=== PATIENT | male | born 2000 | race Caucasian/White ===

== ENCOUNTER 2019-05-23 20:36 | Emergency (ER) | payer OTHER ==
[2019-05-23 20:44] VITALS: RESP 16
[2019-05-23] MEDS ORDERED: SODIUM CHLORIDE 0.9% 1,000 ML IV ONE (21:08)
[2019-05-23] MEDS ORDERED: KETOROLAC 30 MG/ML 1 ML VIAL IVP STA (21:08)
[2019-05-23] MEDS ORDERED: ACETAMINOPHEN TAB 500 MG TAB PO STA (21:08)
--- NOTE | 2019-05-23 21:12 | ED ---
General Adult HPI - General Chief complaint: Back Pain/Injury Stated complaint: Back/Abd Pain Time Seen by Provider: 05/23/19 21:01 Source: patient, RN notes reviewed, old records reviewed Mode of arrival: ambulatory Limitations: no limitations - History of Present Illness Initial comments: 19-year-old male with no significant past medical history presents for evaluation of fever, cough, and bilateral flank pain. Denies dysuria. No previous history of kidney issues or urinary tract infection. his concern for UTI. Patient is circumcised. He's had some lower abdominal pain as well as bilateral flank pain. Denies injury. Denies IV drug use. Denies upper abdominal pain. He reports some mild cough and mild sore throat but no significant URI symptoms. - Related Data Previous Rx's Medication Instructions Recorded Azithromycin [Zithromax Z-pack] 0 mg PO DIRECTED #6 tab 05/23/19 Allergies Allergy/AdvReac Type Severity Reaction Status Date / Time No Known Allergies Allergy Verified 05/23/19 20:41 Review of Systems ROS Statement: Those systems with pertinent positive or pertinent negative responses have been documented in the HPI. ROS Other: All systems not noted in ROS Statement are negative. Past Medical History Past Medical History: No Reported History History of Any Multi-Drug Resistant Organisms: None Reported Past Surgical History: No Surgical Hx Reported Past Psychological History: No Psychological Hx Reported Smoking Status: Never smoker Past Alcohol Use History: None Reported Past Drug Use History: None Reported General Exam Limitations: no limitations General appearance: alert, in no apparent distress Head exam: Present: atraumatic, normocephalic Eye exam: Present: normal appearance, PERRL ENT exam: Present: normal exam, mucous membranes moist, other (no tonsillar swelling or exudate) Neck exam: Present: normal inspection, full ROM. Absent: tenderness, meningismus Respiratory exam: Present: normal lung sounds bilaterally. Absent: respiratory distress, wheezes, rales, rhonchi Cardiovascular Exam: Present: regular rate, normal rhythm GI/Abdominal exam: Present: soft. Absent: distended, tenderness, guarding Extremities exam: Present: normal inspection, normal capillary refill. Absent: pedal edema Back exam: Present: CVA tenderness (R), CVA tenderness (L). Absent: vertebral tenderness Neurological exam: Present: alert, oriented X3, CN II-XII intact. Absent: motor sensory deficit Psychiatric exam: Present: normal affect, normal mood Skin exam: Present: warm, dry, intact. Absent: cyanosis, diaphoretic Course Vital Signs 05/23/19 20:42 Temperature 102.2 F H Pulse Rate 79 Respiratory 16 Rate Blood Pressure 154/88 O2 Sat by Pulse 97 Oximetry - Reevaluation(s) Reevaluation #1: 05/23/19 22:24 patient reevaluated after fever control feeling much better. Medical Decision Making - Medical Decision Making 19-year-old male presenting with fever, cough, bilateral flank pain. Patient was concerned about UTI. Urinalysis is normal with no signs of infection. He does have paraspinal muscular tenderness bilateral flanks. Is likely myalgia secondary to febrile illness. X-rays obtained which does show a left lower lobe pneumonia. He has normal CBC. He is not tachypneic or tachycardic or hypoxic. He is given a dose of IV antibiotics in the emergency prompt. He will be prescribed course of azithromycin. She will return with worsening or changing symptoms. - Lab Data Result diagrams: 05/23/19 21:24 05/23/19 21:24 Lab Results 05/23/19 05/23/19 05/23/19 Range/Units 21:24 21:24 21:24 WBC 4.9 (4.0-11.0) k/uL RBC 4.85 (4.30-5.90) m/uL Hgb 15.2 (13.0-17.5) gm/dL Hct 41.9 (39.0-53.0) % MCV 86.3 (80.0-100.0) fL MCH 31.4 (25.0-35.0) pg MCHC 36.4 (31.0-37.0) g/dL RDW 12.4 (11.5-15.5) % Plt Count 159 (150-450) k/uL Neutrophils % 67 % Lymphocytes % 19 % Monocytes % 8 % Eosinophils % 2 % Basophils % 2 % Neutrophils # 3.3 (1.3-7.7) k/uL Lymphocytes # 0.9 L (1.0-4.8) k/uL Monocytes # 0.4 (0-1.0) k/uL Eosinophils # 0.1 (0-0.7) k/uL Basophils # 0.1 (0-0.2) k/uL Sodium 137 (137-145) mmol/L Potassium 3.8 (3.5-5.1) mmol/L Chloride 101 (98-107) mmol/L Carbon Dioxide 27 (22-30) mmol/L Anion Gap 9 mmol/L BUN 11 (9-20) mg/dL Creatinine 0.88 (0.66-1.25) mg/dL Est GFR (CKD-EPI)AfAm >90 (>60 ml/min/1.73 sqM) Est GFR (CKD-EPI)NonAf >90 (>60 ml/min/1.73 sqM) Glucose 127 H (74-99) mg/dL Plasma Lactic Acid Ta (0.7-2.0) mmol/L Calcium 8.8 (8.4-10.2) mg/dL Total Bilirubin 1.6 H (0.2-1.3) mg/dL AST 27 (17-59) U/L ALT 17 (4-49) U/L Alkaline Phosphatase 59 (38-126) U/L Creatine Kinase 117 (55-170) U/L Total Protein 7.3 (6.3-8.2) g/dL Albumin 4.3 (3.5-5.0) g/dL Urine Color Yellow Urine Appearance Clear (Clear) Urine pH 6.5 (5.0-8.0) Ur Specific [place] 1.012 (1.001-1.035) Urine Protein Negative (Negative) Urine Glucose (UA) Negative (Negative) Urine Ketones Negative (Negative) Urine Blood Negative (Negative) Urine Nitrite Negative (Negative) Urine Bilirubin Negative (Negative) Urine Urobilinogen >12.0 (<2.0) mg/dL Ur Leukocyte Esterase Negative (Negative) Influenza Type A RNA (Not Detectd) Influenza Type B (PCR) (Not Detectd) 05/23/19 05/23/19 Range/Units 21:24 21:24 WBC (4.0-11.0) k/uL RBC (4.30-5.90) m/uL Hgb (13.0-17.5) gm/dL Hct (39.0-53.0) % MCV (80.0-100.0) fL MCH (25.0-35.0) pg MCHC (31.0-37.0) g/dL RDW (11.5-15.5) % Plt Count (150-450) k/uL Neutrophils % % Lymphocytes % % Monocytes % % Eosinophils % % Basophils % % Neutrophils # (1.3-7.7) k/uL Lymphocytes # (1.0-4.8) k/uL Monocytes # (0-1.0) k/uL Eosinophils # (0-0.7) k/uL Basophils # (0-0.2) k/uL Sodium (137-145) mmol/L Potassium (3.5-5.1) mmol/L Chloride (98-107) mmol/L Carbon Dioxide (22-30) mmol/L Anion Gap mmol/L BUN (9-20) mg/dL Creatinine (0.66-1.25) mg/dL Est GFR (CKD-EPI)AfAm (>60 ml/min/1.73 sqM) Est GFR (CKD-EPI)NonAf (>60 ml/min/1.73 sqM) Glucose (74-99) mg/dL Plasma Lactic Acid Ta 1.0 (0.7-2.0) mmol/L Calcium (8.4-10.2) mg/dL Total Bilirubin (0.2-1.3) mg/dL AST (17-59) U/L ALT (4-49) U/L Alkaline Phosphatase (38-126) U/L Creatine Kinase (55-170) U/L Total Protein (6.3-8.2) g/dL Albumin (3.5-5.0) g/dL Urine Color Urine Appearance (Clear) Urine pH (5.0-8.0) Ur Specific [place] (1.001-1.035) Urine Protein (Negative) Urine Glucose (UA) (Negative) Urine Ketones (Negative) Urine Blood (Negative) Urine Nitrite (Negative) Urine Bilirubin (Negative) Urine Urobilinogen (<2.0) mg/dL Ur Leukocyte Esterase (Negative) Influenza Type A RNA Not Detected (Not Detectd) Influenza Type B (PCR) Not Detected (Not Detectd) Disposition Clinical Impression: Community acquired pneumonia Disposition: HOME SELF-CARE Condition: Good Instructions (If sedation given, give patient instructions): Community Acquired Pneumonia (ED) Prescriptions: Azithromycin [Zithromax Z-pack] 0 mg PO DIRECTED #6 tab Is patient prescribed a controlled substance at d/c from ED?: No Referrals: None,Stated [Primary Care Provider] - 1-2 days Dagoberto Butterfield [STAFF PHYSICIAN] - 1-2 days Time of Disposition: 22:27
[2019-05-23 21:49] LABS: Appearance,Urine Clear (Clear); Basophils # (A) 0.1 k/uL (0-0.2); Basophils % (A) 2 %; Bilirubin,Urine Negative (Negative); Blood,Urine Negative (Negative); Color,Urine Yellow; Eosinophils # (A) 0.1 k/uL (0-0.7); Eosinophils % (A) 2 %; Glucose,Urine (UA) Negative (Negative); HCT 41.9 % (39.0-53.0); HGB 15.2 gm/dL (13.0-17.5); Ketones,Urine Negative (Negative); Leukocyte Esterase,Urine Negative (Negative); Lymphocytes # (A) 0.9 k/uL (1.0-4.8); Lymphocytes % (A) 19 %; MCH 31.4 pg (25.0-35.0); MCHC 36.4 g/dL (31.0-37.0); MCV 86.3 fL (80.0-100.0); Mean Platelet Volume 8.2; Monocytes # (A) 0.4 k/uL (0-1.0); Monocytes % (A) 8 %; Neutrophils # (A) 3.3 k/uL (1.3-7.7); Neutrophils % (A) 67 %; Nitrite,Urine Negative (Negative); PH, Urine 6.5 (5.0-8.0); Platelet Count 159 k/uL (150-450); Protein,Urine Negative (Negative); RBC 4.85 m/uL (4.30-5.90); RDW 12.4 % (11.5-15.5); Specific Gravity,Urine 1.012 (1.001-1.035); Urobilinogen,Urine >12.0 mg/dL (<2.0); WBC 4.9 k/uL (4.0-11.0)
[2019-05-23 21:57] LABS: ALT 17 U/L (4-49); AST 27 U/L (17-59); African American GFR (CKD) >90 (>60 ml/min/1.73 sqM); Albumin 4.3 g/dL (3.5-5.0); Alkaline Phosphatase 59 U/L (38-126); Anion Gap 9 mmol/L; Blood Urea Nitrogen 11 mg/dL (9-20); Calcium 8.8 mg/dL (8.4-10.2); Carbon Dioxide 27 mmol/L (22-30); Chloride 101 mmol/L (98-107); Creatine Kinase 117 U/L (55-170); Glucose 127 mg/dL (74-99); Non-African American GFR(CKD) >90 (>60 ml/min/1.73 sqM); Potassium 3.8 mmol/L (3.5-5.1); Sodium 137 mmol/L (137-145); Total Bilirubin 1.6 mg/dL (0.2-1.3); Total Protein 7.3 g/dL (6.3-8.2)
--- NOTE | 2019-05-23 21:59 | XR ---
EXAMINATION TYPE: XR chest 2V DATE OF EXAM: 05/23/2019 COMPARISON: NONE HISTORY: Fever TECHNIQUE: 2 views FINDINGS: There is some patchy airspace pneumonia left lower lobe. The other lung rsos are clear. H eart and mediastinum are normal. Diaphragm is normal. Bony thorax appears normal. IMPRESSION: Left lower lobe pneumonia.
[2019-05-23] MEDS ORDERED: cefTRIAXone IN SWFI 1,000 MG/10 ML SYRINGE IVP STA (22:16)
[2019-05-23] MEDS ORDERED: AZITHROMYCIN 500 MG in SODIUM CHLORIDE 0.9% 250 ML IVPB STA (22:16)
[2019-05-23 23:45] VITALS: BP 116/66; PULSE 74; TEMP 98.8
== END 2019-05-23 23:45 | disposition home or self-care (01) ==
LOC: EC 20:36
DX: J18.9 Pneumonia, unspecified organism (principal); J02.9 Acute pharyngitis, unspecified; R10.30 Lower abdominal pain, unspecified
CPT/HCPCS: 36415; 80053; 82550; 83605; 85025; 81003; 87086; 87502; 71046; 99284; 96365; 96375 ×2; 96361; J0456; J0696; J1885